=== PATIENT | male | born 1940 | race Two or more races ===

== ENCOUNTER → 2023-11-06 13:44 | Outpatient (REF) | payer MEDICARE, OTHER, SELFPAY | LOC: PAVMRI 13:44 | PROVIDERS: ATTENDING PHYSICIAN Psychiatry & Neurology Neurology; FAMILY PHYSICIAN Internal Medicine | DX: H55.00 Unspecified nystagmus (principal); G45.9 Transient cerebral ischemic attack, unspecified | CPT/HCPCS: 70544; 70549; A9585 ==